=== PATIENT | female | born 1955 | race Caucasian/White ===

== ENCOUNTER → 2022-05-23 | Outpatient (CLI) | payer BC, MEDICARE ==
[~2022-05-23] VITALS: Ht 162.6 cm; Wt 59.9 kg
[~2022-05-23] MED LIST: ACETAMINOPHEN IV 100 ML IV ONE; ACETAMINOPHEN IV 1000 MG/100ML (10MG/ML) IV ONE; ALBU0.084 NEB; ALBUAER3 IN; APIX2.5T PO; BUPIVACAINE W/ EPINEPH 0.25% INJ 50ML MDV ONE; CELECOXIB 100 MG CAP PO ONE; FLUT1AER17 IN; GLYCOPYRROLATE 0.2 MG/ML 1ML VIAL ONE; HYDR-4902 PO; KETOROLAC TROMETH 30 MG/ML 1ML VIAL ONE; LIDOCAINE 2% (LOCAL ANESTH.) PF 5ml SDV ONE; MIDAZOLAM HCL 2MG/2ML 2ml VIAL (1mg/ml) ONE; MORPHINE SULF PF 5 MG/10 ML VIAL ONE; ONDANSETRON HCL 4 MG/2 ML VIAL ONE; PREGABALIN CAPSULE 75 MG CAP PO ONE; PROPOFOL 10 MG/ML 20 ML IV ONE; TRANEXAMIC ACID 20 ML ONE; VANCOMYCIN HCL 1000 MG VL ONE; ceFAZolin 1GM/50ML 100 ML IV ONE; ePHEDrine SULFATE 50 MG/ML AMP ONE; fentaNYL CITRATE 100 MCG/2 ML VL ONE
== END | disposition home or self-care (01) ==
LOC: LAB 08:00 → SUR 08:16 → EDSTATUS 07-18 10:30
PROVIDERS: ATTEND Orthopaedic Surgery Adult Reconstructive Orthopaedic Surgery
DX: Z01.812 Encounter for preprocedural laboratory examination (principal); Z20.822 Contact with and (suspected) exposure to COVID-19
CPT/HCPCS: 86850; 86900; 86901; J2270; U0003; J0131; J0690; J1885; J2001; J2250; J2405; J2704

== ENCOUNTER 2022-06-15 18:37 | Inpatient (IN) | payer MEDICARE, BC ==
[~2022-06-15] VITALS: Ht 165.1 cm; Wt 61.5 kg
[~2022-06-15 18:37] MED LIST changes: -ACETAMINOPHEN IV 100 ML IV ONE; -ACETAMINOPHEN IV 1000 MG/100ML (10MG/ML) IV ONE; -APIX2.5T PO; -BUPIVACAINE W/ EPINEPH 0.25% INJ 50ML MDV ONE; -CELECOXIB 100 MG CAP PO ONE; -GLYCOPYRROLATE 0.2 MG/ML 1ML VIAL ONE; -HYDR-4902 PO; -KETOROLAC TROMETH 30 MG/ML 1ML VIAL ONE; -LIDOCAINE 2% (LOCAL ANESTH.) PF 5ml SDV ONE; -MIDAZOLAM HCL 2MG/2ML 2ml VIAL (1mg/ml) ONE; -MORPHINE SULF PF 5 MG/10 ML VIAL ONE; -ONDANSETRON HCL 4 MG/2 ML VIAL ONE; -PREGABALIN CAPSULE 75 MG CAP PO ONE; -PROPOFOL 10 MG/ML 20 ML IV ONE; -TRANEXAMIC ACID 20 ML ONE; -VANCOMYCIN HCL 1000 MG VL ONE; -ceFAZolin 1GM/50ML 100 ML IV ONE; -ePHEDrine SULFATE 50 MG/ML AMP ONE; -fentaNYL CITRATE 100 MCG/2 ML VL ONE
[2022-06-16] VITALS (11 sets, daily range): BP systolic 94–128; BP diastolic 52–87
[2022-06-16] MEDS ORDERED: NITROGLYCERIN 0.4 MG SL TAB SL PRN (00:30)
[2022-06-16] MEDS ORDERED: MORPHINE SULFATE INJ 2 MG/ml SYRG IV PRN ×2 (00:30)
[2022-06-16] MEDS ORDERED: ONDANSETRON HCL 4 MG/2 ML VIAL IV PRN ×3 (00:30→15:45)
[2022-06-16] MEDS ORDERED: SODIUM CHLORIDE 0.9% 1,000 ML IV ONE (00:45)
[2022-06-16 01:14] LABS: Basophils # (auto) 0.2 10 ^3/uL (0-0.2); Basophils % (auto) 0.9 % (0.0-2.0); Eosinophils # (auto) 0 10 ^3/uL (0-0.8); Eosinophils % (auto) 0.1 % (0.0-7.0); Hematocrit 40.8 % (36.0-46.0); Hemoglobin 13.6 g/dL (12.2-16.2); Lymphocytes # (auto) 4.9 10 ^3/uL (0.4-5.4); Lymphocytes % (auto) 24.4 % (10.0-50.0); Mean Corpuscular Hemoglobin 30.5 pg (28.0-32.0); Mean Corpuscular Hgb Conc. 33.3 g/dL (32.0-36.0); Mean Corpuscular Volume 91.5 fL (80.0-100.0); Monocytes # (auto) 1.1 10 ^3/uL (0-1.3); Monocytes % (auto) 5.7 % (0.0-12.0); Neutrophils # (auto) 13.9 10 ^3/uL (1.6-8.6); Neutrophils % (auto) 68.9 % (37.0-80.0); Red Blood Cells 4.46 10^6/uL (4.0-5.20); Red Cell Distribution Width 13.4 % (11.8-14.3); White Blood Cell 20.1 10^3/uL (4.4-10.8)
[2022-06-16 01:36] LABS: Albumin 4.1 g/dL (3.4-5.0); BUN/Creatinine Ratio 23.3; Calcium 9.8 mg/dL (8.5-10.1); Potassium 4.7 mmol/L (3.5-5.1)
[2022-06-16 01:45] LABS: Bilirubin, Total 0.5 mg/dL (0.2-1.0)
[2022-06-16 02:03] LABS: INR 0.98 (0.9-1.15)
[2022-06-16 05:04] LABS: Basophils # (auto) 0 10 ^3/uL (0-0.2); Basophils % (auto) 0.2 % (0.0-2.0); Eosinophils # (auto) 0.1 10 ^3/uL (0-0.8); Eosinophils % (auto) 0.7 % (0.0-7.0); Hematocrit 38.7 % (36.0-46.0); Hemoglobin 12.7 g/dL (12.2-16.2); Lymphocytes # (auto) 5.5 10 ^3/uL (0.4-5.4); Lymphocytes % (auto) 27.4 % (10.0-50.0); Mean Corpuscular Hemoglobin 30.3 pg (28.0-32.0); Mean Corpuscular Hgb Conc. 32.9 g/dL (32.0-36.0); Mean Corpuscular Volume 92.1 fL (80.0-100.0); Monocytes # (auto) 1.9 10 ^3/uL (0-1.3); Monocytes % (auto) 9.3 % (0.0-12.0); Neutrophils # (auto) 12.5 10 ^3/uL (1.6-8.6); Neutrophils % (auto) 62.4 % (37.0-80.0); Red Cell Distribution Width 13.6 % (11.8-14.3)
[2022-06-16 05:30] LABS: Albumin 3.7 g/dL (3.4-5.0); Calcium 9.1 mg/dL (8.5-10.1); Potassium 4.2 mmol/L (3.5-5.1)
[2022-06-16 05:33] LABS: Bilirubin, Total 0.5 mg/dL (0.2-1.0); Total Protein 6.5 g/dL (6.4-8.2)
[2022-06-16] MEDS ORDERED: ALBUTEROL SULF 2.5 MG/0.5ML(0.5%) NEB SOLN NEB SCH (06:00)
[2022-06-16] MEDS ORDERED: IPRATROPIUM BROM 0.5 MG/2.5ML INH SOL NEB SCH (06:00)
[2022-06-16 07:26] LABS: Urine Bacteria FEW /hpf (None Seen); Urine Blood Negative /uL (Negative); Urine Mucus FEW (None Seen); Urine Specific Gravity 1.008 (1.001-1.035); Urine WBC 1 /hpf (0 - 5)
[2022-06-16] MEDS: NICOTINE 21MG/24 HR TOPICAL PATCH TD SCH (10:15)
[2022-06-16] MEDS: ALBUTEROL SULF 2.5 MG/0.5ML(0.5%) NEB SOLN NEB PRN ×5 (10:45→22:43)
[2022-06-16] MEDS: IPRATROPIUM BROM 0.5 MG/2.5ML INH SOL NEB SCH ×5 (10:45→22:43)
[2022-06-16] MEDS ORDERED: TRANEXAMIC ACID 20 ML ONE (12:39)
[2022-06-16] MEDS: BUPIVACAINE 0.25% INJ 50ML VIAL ONE ×2 (12:40→14:45)
[2022-06-16] MEDS ORDERED: ceFAZolin 1GM/50ML 100 ML IV ONE (12:40)
[2022-06-16] MEDS: KETOROLAC TROMETH 30 MG/ML 1ML VIAL ONE ×2 (12:41→14:45)
[2022-06-16] MEDS: VANCOMYCIN HCL 1000 MG VL ONE ×2 (12:41→14:40)
[2022-06-16] MEDS ORDERED: ePHEDrine SULFATE 50 MG/ML AMP ONE (12:48)
[2022-06-16] MEDS ORDERED: MIDAZOLAM HCL 2MG/2ML 2ml VIAL (1mg/ml) ONE (12:48)
[2022-06-16] MEDS ORDERED: ONDANSETRON HCL 4 MG/2 ML VIAL ONE (12:48)
[2022-06-16] MEDS ORDERED: fentaNYL CITRATE 100 MCG/2 ML VL ONE (12:48)
[2022-06-16] MEDS ORDERED: MORPHINE SULF PF 5 MG/10 ML VIAL ONE (12:48)
[2022-06-16] MEDS ORDERED: PROPOFOL 10 MG/ML 20 ML IV ONE (12:48)
[2022-06-16] MEDS ORDERED: BUPIVACAINE 0.5% P/F INJ 10 ML VIAL ONE (12:53)
[2022-06-16] MEDS ORDERED: ALBUTEROL SULF 2.5 MG/0.5ML(0.5%) NEB SOLN NEB ONE (15:00)
[2022-06-16] MEDS ORDERED: HYDROmorphone HCL 2 MG/ML VL/or syr IV PRN (15:15)
[2022-06-16] MEDS ORDERED: BISACODYL 5 MG EC TAB PO PRN (15:15)
[2022-06-16] MEDS: LACTATED RINGER'S 1,000 ML IV SCH (15:15)
[2022-06-16] MEDS ORDERED: ceFAZolin 1GM/50ML 50 ML IV SCH (15:15)
[2022-06-16] MEDS ORDERED: ACETAMINOPHEN 325 MG TAB PO PRN (15:15)
[2022-06-16] MEDS ORDERED: KETAMINE 50mg/ML 10ml Vial (500mg/10ml) IV ONE (15:18)
[2022-06-16] MEDS ORDERED: diphenhdrAMINE HCL 50 MG/1 ML VL IV PRN (15:45)
[2022-06-16] MEDS ORDERED: NALOXONE HCL 0.4 MG/ML VIAL IV PRN (15:45)
[2022-06-16] MEDS ORDERED: FAMOTIDINE (10MG/ML) 2ML VL IV PRN (15:45)
[2022-06-16] MEDS ORDERED: DexAMETHasone SOD PHOS 10MG/1ML VIAL INJ IV PRN (15:45)
[2022-06-16] MEDS: DOCUSATE SOD 100 MG CAP PO SCH (21:52)
[2022-06-16] MEDS: HYDROCORTISONE SOD SUCC 100 MG/2ML INJ VIAL IV SCH ×2 (21:52→22:00)
[2022-06-16] MEDS: ceFAZolin 1GM/50ML 50 ML IV SCH (21:53)
[2022-06-16] MEDS: SODIUM CHLOR 0.9% PF (SALINE LOCK) 10ML VIAL/SYR IV SCH (21:54)
[2022-06-17] VITALS (19 sets, daily range): BP systolic 94–124; BP diastolic 45–81
[2022-06-17] MEDS: LACTATED RINGER'S 1,000 ML IV SCH (01:15)
[2022-06-17] MEDS: IPRATROPIUM BROM 0.5 MG/2.5ML INH SOL NEB SCH ×6 (02:14→21:47)
[2022-06-17] MEDS: ALBUTEROL SULF 2.5 MG/0.5ML(0.5%) NEB SOLN NEB PRN ×6 (02:14→21:47)
[2022-06-17] MEDS: ceFAZolin 1GM/50ML 50 ML IV SCH ×2 (03:21→10:22)
[2022-06-17] MEDS: SODIUM CHLOR 0.9% PF (SALINE LOCK) 10ML VIAL/SYR IV SCH ×3 (06:00→22:26)
[2022-06-17] MEDS: HYDROCORTISONE SOD SUCC 100 MG/2ML INJ VIAL IV SCH (06:38)
[2022-06-17 08:00] LABS: Basophils # (auto) 0 10 ^3/uL (0-0.2); Basophils % (auto) 0.1 % (0.0-2.0); Eosinophils # (auto) 0 10 ^3/uL (0-0.8); Eosinophils % (auto) 0.1 % (0.0-7.0); Hematocrit 32.9 % (36.0-46.0); Hemoglobin 10.8 g/dL (12.2-16.2); Lymphocytes # (auto) 3.7 10 ^3/uL (0.4-5.4); Lymphocytes % (auto) 15.5 % (10.0-50.0); Mean Corpuscular Hemoglobin 30.4 pg (28.0-32.0); Mean Corpuscular Hgb Conc. 32.8 g/dL (32.0-36.0); Mean Corpuscular Volume 92.8 fL (80.0-100.0); Monocytes # (auto) 2.1 10 ^3/uL (0-1.3); Monocytes % (auto) 8.6 % (0.0-12.0); Neutrophils # (auto) 18.3 10 ^3/uL (1.6-8.6); Neutrophils % (auto) 75.7 % (37.0-80.0); Red Blood Cells 3.54 10^6/uL (4.0-5.20); White Blood Cell 24.1 10^3/uL (4.4-10.8)
[2022-06-17 08:15] LABS: Albumin 2.9 g/dL (3.4-5.0); BUN/Creatinine Ratio 18.4; Calcium 8.8 mg/dL (8.5-10.1); Potassium 4.4 mmol/L (3.5-5.1)
[2022-06-17 08:18] LABS: Bilirubin, Total 0.4 mg/dL (0.2-1.0); Total Protein 5.4 g/dL (6.4-8.2)
[2022-06-17] MEDS ORDERED: ENOXAPARIN SOD 40 MG/0.4 ML SYRINGE SC SCH (10:00)
[2022-06-17] MEDS: DOCUSATE SOD 100 MG CAP PO SCH ×2 (10:23→22:26)
[2022-06-17] MEDS: NICOTINE 21MG/24 HR TOPICAL PATCH TD SCH (10:23)
[2022-06-17] MEDS: HYDROcodone-ACET 5/325MG TAB PO PRN ×3 (10:25→22:30)
[2022-06-17] MEDS ORDERED: HYDROCORTISONE SOD SUCC 100 MG/2ML INJ VIAL IV SCH ×2 (14:00→22:00)
[2022-06-18] MEDS: IPRATROPIUM BROM 0.5 MG/2.5ML INH SOL NEB SCH ×2 (01:52→06:58)
[2022-06-18] MEDS: ALBUTEROL SULF 2.5 MG/0.5ML(0.5%) NEB SOLN NEB PRN ×2 (01:52→06:58)
[2022-06-18 05:00] VITALS: BP 125/66
[2022-06-18 05:28] LABS: Hemoglobin 11.3 g/dL (12.2-16.2)
[2022-06-18] MEDS: SODIUM CHLOR 0.9% PF (SALINE LOCK) 10ML VIAL/SYR IV SCH (05:39)
[2022-06-18] MEDS: HYDROcodone-ACET 5/325MG TAB PO PRN (05:52)
[2022-06-18 08:57] VITALS: BP 134/62
[2022-06-18] MEDS ORDERED: APIX2.5T PO ×2 (09:05→13:06)
[2022-06-18] MEDS ORDERED: HYDR-4902 PO ×3 (09:05→13:07)
== END 2022-06-18 10:00 | disposition home or self-care (01) | DRG 522 ==
LOC: ER 18:37 → OVERFLOW 06-16 00:23 → TELE-WESTW 06-16 12:36
PROVIDERS: ADMIT Internal Medicine; ATTEND Internal Medicine
PROC: 8E0YXBZ Computer Assisted Procedure of Lower Extremity (ICD-10-PCS; 2022-06-16)
PROC: 0SR90J9 Replacement of Right Hip Joint with Synthetic Substitute, Cemented, Open Approach (ICD-10-PCS; principal; 2022-06-16 13:00)
DX: S72.091A Other fracture of head and neck of right femur, initial encounter for closed fracture (principal); M87.851 Other osteonecrosis, right femur; J44.1 Chronic obstructive pulmonary disease with (acute) exacerbation; J96.10 Chronic respiratory failure, unspecified whether with hypoxia or hypercapnia; D72.829 Elevated white blood cell count, unspecified; Z20.822 Contact with and (suspected) exposure to COVID-19; T38.0X5A Adverse effect of glucocorticoids and synthetic analogues, initial encounter; W18.39XA Other fall on same level, initial encounter; M81.0 Age-related osteoporosis without current pathological fracture; Z90.710 Acquired absence of both cervix and uterus; Z99.81 Dependence on supplemental oxygen; Y92.89 Other specified places as the place of occurrence of the external cause; Y93.89 Activity, other specified; Y99.8 Other external cause status
CPT/HCPCS: 36415; 71045; 72170; 73501; 73502; 80053; 81001; 84484; 85014; 85018; 85025; 85610; 86850; 86900; 86901; 87426; 94640; 96360; G0378; J0690; J1885; J2250; J2405; J2704; J3490

== ENCOUNTER 2022-09-22 20:59 | Inpatient (IN) | payer BC, MEDICARE ==
[~2022-09-22] VITALS: Ht 165.1 cm; Wt 59.6 kg
[~2022-09-22 20:59] MED LIST changes: +APIX2.5T PO; +HYDR-4902 PO
[2022-09-22 22:16] LABS: Mean Corpuscular Hemoglobin 30.3 pg (28.0-32.0)
[2022-09-22 22:18] LABS: Hematocrit 43.2 % (36.0-46.0); Hemoglobin 14.3 g/dL (12.2-16.2); Mean Corpuscular Volume 91.8 fL (80.0-100.0); Red Blood Cells 4.71 10^6/uL (4.0-5.20); Red Cell Distribution Width 14.1 % (11.8-14.3)
[2022-09-22 22:24] LABS: White Blood Cell 34.7 10^3/uL (4.4-10.8)
[2022-09-22 22:26] LABS: Basophils % (manual) 0 (0.0-2.0); Blast Cells 0; Eosinophils % (manual) 0 (0-7); Metamyelocytes % 0; Myelocytes % 0; Promyelocytes % 0; Reactive Lymphocytes 0
[2022-09-22 22:35] LABS: INR 0.95 (0.9-1.15); Partial Thromboplastin Time 29.1 sec (24.6-33.4)
[2022-09-22 22:37] LABS: Calcium 9.5 mg/dL (8.5-10.1); Potassium 4.5 mmol/L (3.5-5.1)
[2022-09-22 22:40] LABS: Bilirubin, Total 0.4 mg/dL (0.2-1.0); Total Protein 7.2 g/dL (6.4-8.2)
[2022-09-22 23:04] LABS: Band Neutrophils % (manual) 5; Lymphocytes % (manual) 6 (10.0-50.0); Monocytes % (manual) 6 (0-12)
[2022-09-23] MEDS ORDERED: VANCOMYCIN 1GM/250ML 250 ML IV ONE (01:15)
[2022-09-23] MEDS ORDERED: NITROGLYCERIN 0.4 MG SL TAB SL PRN (01:15)
[2022-09-23] MEDS ORDERED: PIPERACILLIN-TAZOB 3.375GM 100 ML IV ONE (01:15)
[2022-09-23 01:16] VITALS: BP 147/65
[2022-09-23] MEDS ORDERED: SOD CHL 0.45% 1,000 ML IV ONE (01:45)
[2022-09-23] MEDS: ALBUTEROL SULF 2.5 MG/0.5ML(0.5%) NEB SOLN NEB SCH ×4 (05:47→23:53)
[2022-09-23] MEDS: methylPREDNISolone SOD SUCC 125 MG/2 ML VL IV SCH ×3 (06:36→21:18)
[2022-09-23] MEDS ORDERED: VANCOMYCIN PER PHARMACY 0 MG IV SCH ×2 (08:00→10:30)
[2022-09-23] MEDS ORDERED: PIPERACILLIN-TAZOB 3.375GM 100 ML IV SCH (08:00)
[2022-09-23] MEDS: IPRATROPIUM BROM 0.5 MG/2.5ML INH SOL NEB SCH ×3 (11:08→23:53)
[2022-09-23] MEDS: ACETYLCYSTEINE 20%(200MG/ML) SOL 4ML NEB SCH ×3 (11:09→23:53)
[2022-09-23] MEDS: VANCOMYCIN 1GM/250ML 250 ML IV SCH (16:08)
[2022-09-23] MEDS: PIPERACILLIN-TAZOB 3.375GM 100 ML IV SCH (18:14)
[2022-09-23] MEDS ORDERED: INFLUENZA QUAD 2022-2023 0.5 ML SYRG IM ONE (19:00)
[2022-09-23 19:02] VITALS: BP 135/73
[2022-09-23 21:42] LABS: Urine Bacteria FEW /hpf (None Seen); Urine Blood Negative /uL (Negative); Urine Specific Gravity 1.006 (1.001-1.035); Urine WBC <1 /hpf (0 - 5)
[2022-09-23 22:00] VITALS: BP 125/67
[2022-09-24] MEDS: PIPERACILLIN-TAZOB 3.375GM 100 ML IV SCH ×3 (02:03→20:14)
[2022-09-24 05:00] VITALS: BP 112/62
[2022-09-24 05:56] LABS: Basophils # (auto) 0 10 ^3/uL (0-0.2); Eosinophils # (auto) 0 10 ^3/uL (0-0.8); Hematocrit 35.6 % (36.0-46.0); Lymphocytes # (auto) 1.6 10 ^3/uL (0.4-5.4); Lymphocytes % (auto) 8.7 % (10.0-50.0); Mean Corpuscular Hemoglobin 30.6 pg (28.0-32.0); Mean Corpuscular Hgb Conc. 33.7 g/dL (32.0-36.0); Mean Corpuscular Volume 90.9 fL (80.0-100.0); Monocytes # (auto) 0.8 10 ^3/uL (0-1.3); Monocytes % (auto) 4.3 % (0.0-12.0); Neutrophils # (auto) 16.4 10 ^3/uL (1.6-8.6); Red Blood Cells 3.91 10^6/uL (4.0-5.20); Red Cell Distribution Width 13.9 % (11.8-14.3); White Blood Cell 18.9 10^3/uL (4.4-10.8)
[2022-09-24] MEDS: ACETYLCYSTEINE 20%(200MG/ML) SOL 4ML NEB SCH ×3 (06:00→19:34)
[2022-09-24] MEDS: IPRATROPIUM BROM 0.5 MG/2.5ML INH SOL NEB SCH ×3 (06:00→19:33)
[2022-09-24] MEDS: ALBUTEROL SULF 2.5 MG/0.5ML(0.5%) NEB SOLN NEB SCH ×3 (06:00→19:34)
[2022-09-24] MEDS: VANCOMYCIN 1GM/250ML 250 ML IV SCH ×2 (06:15→18:51)
[2022-09-24 06:17] LABS: Potassium 4.4 mmol/L (3.5-5.1)
[2022-09-24 06:34] LABS: Albumin 3.1 g/dL (3.4-5.0); BUN/Creatinine Ratio 21.4 (10.0-20.0); Calcium 9.4 mg/dL (8.5-10.1)
[2022-09-24 06:53] LABS: Bilirubin, Total 0.2 mg/dL (0.2-1.0); Total Protein 6.2 g/dL (6.4-8.2)
[2022-09-24 09:00] VITALS: BP 119/63
[2022-09-24] MEDS ORDERED: OXYCODONE W/ ACETAMINOPHEN 5/325MG TABLET PO PRN (09:00)
[2022-09-24] MEDS ORDERED: ACETAMINOPHEN 500 MG TAB PO PRN (12:00)
[2022-09-24 13:00] VITALS: BP 120/59
[2022-09-24 16:50] VITALS: BP 119/57
[2022-09-24 22:00] VITALS: BP 113/50
[2022-09-25] MEDS: ACETYLCYSTEINE 20%(200MG/ML) SOL 4ML NEB SCH ×3 (01:00→11:23)
[2022-09-25] MEDS: ALBUTEROL SULF 2.5 MG/0.5ML(0.5%) NEB SOLN NEB SCH ×3 (01:00→11:23)
[2022-09-25] MEDS: IPRATROPIUM BROM 0.5 MG/2.5ML INH SOL NEB SCH ×3 (01:00→11:23)
[2022-09-25] MEDS: PIPERACILLIN-TAZOB 3.375GM 100 ML IV SCH ×2 (01:23→10:12)
[2022-09-25 05:00] VITALS: BP 101/60
[2022-09-25] MEDS ORDERED: VANCOMYCIN 1GM/250ML 250 ML IV SCH (05:00)
[2022-09-25 05:26] LABS: Basophils # (auto) 0 10 ^3/uL (0-0.2); Basophils % (auto) 0.1 % (0.0-2.0); Eosinophils # (auto) 0.2 10 ^3/uL (0-0.8); Eosinophils % (auto) 0.9 % (0.0-7.0); Hematocrit 36.9 % (36.0-46.0); Hemoglobin 12.2 g/dL (12.2-16.2); Lymphocytes # (auto) 4.1 10 ^3/uL (0.4-5.4); Lymphocytes % (auto) 23.3 % (10.0-50.0); Mean Corpuscular Hemoglobin 30.3 pg (28.0-32.0); Mean Corpuscular Hgb Conc. 33.2 g/dL (32.0-36.0); Mean Corpuscular Volume 91.5 fL (80.0-100.0); Monocytes # (auto) 1.8 10 ^3/uL (0-1.3); Monocytes % (auto) 10.1 % (0.0-12.0); Neutrophils # (auto) 11.4 10 ^3/uL (1.6-8.6); Neutrophils % (auto) 65.6 % (37.0-80.0); Nucleated Red Blood Cells % 0.1 %; Red Blood Cells 4.04 10^6/uL (4.0-5.20); Red Cell Distribution Width 13.9 % (11.8-14.3); White Blood Cell 17.4 10^3/uL (4.4-10.8)
[2022-09-25 05:41] LABS: Potassium 3.8 mmol/L (3.5-5.1)
[2022-09-25 05:53] LABS: Albumin 2.9 g/dL (3.4-5.0); BUN/Creatinine Ratio 21.8 (10.0-20.0); Bilirubin, Total 0.4 mg/dL (0.2-1.0); Total Protein 5.8 g/dL (6.4-8.2)
[2022-09-25] MEDS ORDERED: FUROSEMIDE 20 MG/2 ML VIAL IV ONE ×2 (08:30→10:00)
[2022-09-25 09:00] VITALS: BP 136/65
[2022-09-25] MEDS ORDERED: LEVO750T8 PO (09:50)
[2022-09-25] MEDS ORDERED: PRED20TA2 PO (09:51)
[2022-09-25] MEDS ORDERED: DEXT1SUS PO (09:54)
[2022-09-25] MEDS ORDERED: NYS5LQ MT (12:34)
[2022-09-25 13:00] VITALS: BP 118/58
== END 2022-09-25 15:28 | disposition home or self-care (01) | DRG 871 ==
LOC: ER 20:59 → EDBD 20:59 → TELE 09-23 01:09 → TELE-CENTR 09-23 18:06
PROVIDERS: ADMIT Internal Medicine; ATTEND Internal Medicine
DX: A41.9 Sepsis, unspecified organism (principal); J15.6 Pneumonia due to other Gram-negative bacteria; J96.20 Acute and chronic respiratory failure, unspecified whether with hypoxia or hypercapnia; J44.0 Chronic obstructive pulmonary disease with (acute) lower respiratory infection; J44.1 Chronic obstructive pulmonary disease with (acute) exacerbation; Z20.822 Contact with and (suspected) exposure to COVID-19; G89.29 Other chronic pain; M54.9 Dorsalgia, unspecified; F17.200 Nicotine dependence, unspecified, uncomplicated; M19.90 Unspecified osteoarthritis, unspecified site; Z87.01 Personal history of pneumonia (recurrent); Z90.710 Acquired absence of both cervix and uterus; Z99.81 Dependence on supplemental oxygen
CPT/HCPCS: 36415; 36600; 71045; 80053; 80202; 81001; 82805; 83605; 83880; 84484; 85007; 85025; 85027; 85610; 85730; 87040; 87070; 87077; 87186; 87205; 87426; 93005; 93306; 94640; 94668; 96365; 96366; 96367; G0378; J2543

== ENCOUNTER 2023-09-16 18:07 | Observation (INO) | payer BC, MEDICARE ==
[~2023-09-16] VITALS: Ht 162.6 cm; Wt 61.3 kg
[~2023-09-16 18:07] MED LIST changes: -APIX2.5T PO; +DEXT1SUS PO; -HYDR-4902 PO; +LEVO750T8 PO; +NYS5LQ MT; +PRED20TA2 PO
[2023-09-16] MEDS: cefTRIAXone 1GM/50ML D5W 50 ML IV ONE (18:40)
[2023-09-16] MEDS: methylPREDNISolone SOD SUCC 125 MG/2 ML VL IV ONE (18:40)
[2023-09-16] MEDS: IPRATROPIUM BROM 0.5 MG/2.5ML INH SOL NEB ONE ×2 (18:47→20:46)
[2023-09-16 18:48] VITALS: PULSE 119; RESP 28; O2SAT 95
[2023-09-16] MEDS: ALBUTEROL SULF 2.5 MG/0.5ML(0.5%) NEB SOLN NEB ONE ×2 (18:48→20:46)
[2023-09-16 19:23] VITALS: PULSE 119; RESP 26; O2SAT 96
[2023-09-16] MEDS: AZITHROMYCIN 500MG/ 250ML 250 ML IV ONE (19:38)
[2023-09-16 20:20] LABS: Basophils # (auto) 0.1 10 ^3/uL (0-0.2); Basophils % (auto) 0.2 % (0.0-2.0); Eosinophils # (auto) 0 10 ^3/uL (0-0.8); Hematocrit 44.4 % (36.0-46.0); Lymphocytes # (auto) 5.2 10 ^3/uL (0.4-5.4); Lymphocytes % (auto) 18.3 % (10.0-50.0); Mean Corpuscular Hemoglobin 31.4 pg (28.0-32.0); Mean Corpuscular Hgb Conc. 33.8 g/dL (32.0-36.0); Monocytes # (auto) 1.6 10 ^3/uL (0-1.3); Monocytes % (auto) 5.7 % (0.0-12.0); Neutrophils # (auto) 21.4 10 ^3/uL (1.6-8.6); Neutrophils % (auto) 75.8 % (37.0-80.0); Nucleated Red Blood Cells % 0.1 %; Red Blood Cells 4.77 10^6/uL (4.0-5.20); Red Cell Distribution Width 14.1 % (11.8-14.3); White Blood Cell 28.2 10^3/uL (4.4-10.8)
[2023-09-16 20:33] LABS: INR 0.97 (0.9-1.15); Partial Thromboplastin Time 25.6 SEC (24.5-34.5); Prothrombin Time 10.2 sec (9.3-11.8)
[2023-09-16] MEDS: SODIUM CHLORIDE 0.9% 1,000 ML IV ONE ×2 (20:38→22:28)
[2023-09-16 20:39] LABS: Alanine Aminotransferase 13 U/L (7-40); Alkaline Phosphatase 51 U/L (46-116); Anion Gap 11 (5-15); Aspartate Aminotransferase 12 U/L (13-40); BUN/Creatinine Ratio 12.8 (10.0-20.0); Blood Urea Nitrogen 14 mg/dL (9-23); Calcium 9.7 mg/dL (8.7-10.4); Carbon Dioxide 27 mmol/L (20-30); Chloride 101 mmol/L (98-107); Glucose 174 mg/dL (74-106); Potassium 4.3 mmol/L (3.5-5.1); Sodium 139 mmol/L (136-145)
[2023-09-16 20:40] LABS: Albumin 4.5 g/dL (3.2-4.8); Bilirubin, Total 0.3 mg/dL (0.2-1.0); Total Protein 7.2 g/dL (5.7-8.2)
[2023-09-16 21:00] LABS: Lactic Acid w/Reflex 5.3 mmol/L (0.4-2.0)
[2023-09-16] MEDS: LORazepam 2MG/ML-1ML VIAL IV ONE (21:26)
[2023-09-16] MEDS: NITROGLYCERIN 2% OINT 1GM PKG TD ONE (22:28)
[2023-09-16] MEDS: ASPirin 325 MG TAB PO ONE (22:28)
[2023-09-16] MEDS ORDERED: DEXTROSE (50%) 50ML SYRG IV PRN (23:15)
[2023-09-16] MEDS ORDERED: ONDANSETRON HCL 4 MG/2 ML VIAL IV PRN (23:15)
[2023-09-16 23:18] VITALS: BP 132/82; PULSE 134; RESP 28; TEMP 97.7; O2SAT 92
[2023-09-16] MEDS: SODIUM CHLORIDE 0.9% 1,000 ML IV SCH (23:49)
[2023-09-17] VITALS (13 sets, daily range): BP systolic 115; BP diastolic 67; PULSE 101–123; RESP 18–28; TEMP 98.2; O2SAT 95–99
[2023-09-17] MEDS ORDERED: MORPHINE SULFATE INJ 2 MG/ml SYRG IV PRN (01:45)
[2023-09-17] MEDS ORDERED: NITROGLYCERIN 0.4 MG SL TAB SL PRN (01:45)
[2023-09-17] MEDS: IPRATROPIUM BROM 0.5 MG/2.5ML INH SOL NEB SCH (02:15)
[2023-09-17] MEDS: ALBUTEROL SULF 2.5 MG/0.5ML(0.5%) NEB SOLN NEB SCH (02:15)
[2023-09-17 05:18] LABS: Basophils # (auto) 0 10 ^3/uL (0-0.2); Basophils % (auto) 0.1 % (0.0-2.0); Eosinophils # (auto) 0 10 ^3/uL (0-0.8); Hematocrit 38.9 % (36.0-46.0); Hemoglobin 12.7 g/dL (12.2-16.2); Lymphocytes # (auto) 1.5 10 ^3/uL (0.4-5.4); Lymphocytes % (auto) 6.5 % (10.0-50.0); Mean Corpuscular Hemoglobin 30.4 pg (28.0-32.0); Mean Corpuscular Hgb Conc. 32.6 g/dL (32.0-36.0); Mean Corpuscular Volume 93.2 fL (80.0-100.0); Monocytes # (auto) 1.3 10 ^3/uL (0-1.3); Monocytes % (auto) 5.6 % (0.0-12.0); Neutrophils # (auto) 20.5 10 ^3/uL (1.6-8.6); Neutrophils % (auto) 87.8 % (37.0-80.0); Red Blood Cells 4.17 10^6/uL (4.0-5.20); Red Cell Distribution Width 13.9 % (11.8-14.3); White Blood Cell 23.3 10^3/uL (4.4-10.8)
[2023-09-17 05:32] LABS: Anion Gap 8 (5-15); Carbon Dioxide 26 mmol/L (20-30); Chloride 106 mmol/L (98-107); Potassium 4.6 mmol/L (3.5-5.1); Sodium 140 mmol/L (136-145)
[2023-09-17 05:33] LABS: Calcium 8.7 mg/dL (8.7-10.4)
[2023-09-17 05:38] LABS: BUN/Creatinine Ratio 19.2 (10.0-20.0); Blood Urea Nitrogen 14 mg/dL (9-23); Glucose 174 mg/dL (74-106)
[2023-09-17 05:56] LABS: Lactic Acid w/Reflex 3.1 mmol/L (0.4-2.0)
[2023-09-17] MEDS: ENOXAPARIN SOD 40 MG/0.4 ML SYRINGE SC SCH (06:26)
[2023-09-17] MEDS ORDERED: ENOXAPARIN SOD 100 MG/1 ML SYRINGE SC SCH (06:30)
[2023-09-17] MEDS: methylPREDNISolone SOD SUCC 40 MG/ML VL IV SCH ×2 (06:40→10:49)
[2023-09-17] MEDS: ENOXAPARIN SOD 100 MG/1 ML SYRINGE SC SCH (06:51)
[2023-09-17] MEDS: PROMETHAZINE W/CODEINE 5 ML ORAL SYRUP PO PRN (07:02)
[2023-09-17] MEDS: ACCU-CHEK COMFORT CURVE STRIP VI SCH (07:03)
[2023-09-17] MEDS: InsuLIN REG 1unit/0.01ml Soln (100units/ml) SC SCH (07:11)
[2023-09-17 08:38] LABS: Triglycerides 87 mg/dL (< 150)
[2023-09-17 08:39] LABS: LDL Cholesterol 68 mg/dL (< 100)
[2023-09-17 08:40] LABS: Cholesterol 167 mg/dL (< 200); HDL Cholesterol 81 mg/dL (40-59)
[2023-09-17] MEDS ORDERED: hydrALAZINE HCL 20 MG/ML VL IV PRN (09:00)
[2023-09-17 09:09] LABS: COVID19 ANTIGEN SOFIA FIA NEGATIVE (NEGATIVE)
[2023-09-17 09:10] LABS: Rapid Influenza A Negative (Negative); Rapid Influenza B Negative (Negative)
[2023-09-17] MEDS: ASPirin-EC 81 mg tab PO SCH (10:49)
[2023-09-17] MEDS: SODIUM CHLORIDE 0.9% 1,000 ML IV SCH (10:49)
[2023-09-17 14:43] LABS: Amphetamine Screen, Urine Neg (NEGATIVE); Barbiturate Scree,Urine Neg (NEGATIVE); Benzodiazephine Screen, Urine Neg (NEGATIVE); Cocaine Screen, Urine Neg (NEGATIVE); Urine Bacteria NONE SEEN /hpf (None Seen); Urine Blood Negative /uL (Negative); Urine Clarity Clear (Clear); Urine Color Colorless (Yellow); Urine Protein, UAD Negative (Negative); Urine Specific Gravity 1.008 (1.001-1.035); Urine Urobilinogen Normal (Negative); Urine WBC <1 /hpf (0 - 5); Urine pH 6.5 (5.0-8.0)
[2023-09-17 14:44] LABS: Cannabinoid Screen, Urine Neg (NEGATIVE); Opiate Scree,Urine Pos (NEGATIVE); Phencyclidine Screen, Urine Neg (NEGATIVE)
[2023-09-17] MEDS: IOHEXOL 350 MG/ML 100ML IJ ONE (14:58)
[2023-09-17] MEDS ORDERED: PRED20TA2 PO (17:56)
[2023-09-17] MEDS ORDERED: AUG875T PO (17:56)
[2023-09-17] MEDS: cefTRIAXone 1GM/50ML D5W 50 ML IV SCH (18:27)
[2023-09-17] MEDS ORDERED: AZITHROMYCIN 500MG/ 250ML 250 ML IV SCH (20:00)
[2023-09-17] MEDS ORDERED: ATORVASTATIN 20 MG TAB PO SCH (22:00)
[2023-09-18] MEDS ORDERED: NICOTINE 7MG/24HR TOPICAL PATCH TD SCH (10:00)
== END 2023-09-17 18:58 | disposition home or self-care (01) ==
LOC: ER 18:07 → EDBD 18:07 → TELE 09-17 01:47
PROVIDERS: ADMIT Hospitalist; ATTEND Hospitalist
DX: J44.1 Chronic obstructive pulmonary disease with (acute) exacerbation (principal); Z20.822 Contact with and (suspected) exposure to COVID-19; J96.21 Acute and chronic respiratory failure with hypoxia; J18.9 Pneumonia, unspecified organism; J44.0 Chronic obstructive pulmonary disease with (acute) lower respiratory infection; M81.0 Age-related osteoporosis without current pathological fracture; I21.A1 Myocardial infarction type 2; D84.9 Immunodeficiency, unspecified; E11.9 Type 2 diabetes mellitus without complications; F17.210 Nicotine dependence, cigarettes, uncomplicated; Z79.52 Long term (current) use of systemic steroids; Z90.710 Acquired absence of both cervix and uterus; Z96.641 Presence of right artificial hip joint; Z99.81 Dependence on supplemental oxygen; Z79.899 Other long term (current) drug therapy
CPT/HCPCS: 36415; 36600; 71045; 71275; 80048; 80053; 80061; 80307; 81001; 82805; 82962; 83036; 83605; 83735; 83880; 84436; 84443; 84481; 84484; 85025; 85379; 85610; 85730; 87040; 87426; 87804; 93005; 93306; 94640; 94660; 96361; 96365; 96366; 96367; 96372; 96375; 96376; 99291; G0378; J0456; J0696; J1650; J1815; J2060; J2920; J2930; J7644; Q9967

== ENCOUNTER 2023-09-21 12:18 | Inpatient (IN) | payer BC, MEDICARE ==
[~2023-09-21] VITALS: Ht 162.6 cm; Wt 60.2 kg
[2023-09-21] VITALS (12 sets, daily range): BP systolic 89–113; BP diastolic 54–69; PULSE 106–144; RESP 19–43; TEMP 97.7; O2SAT 95–100
[~2023-09-21 12:18] MED LIST changes: +AUG875T PO
[2023-09-21] MEDS: DexAMETHasone SOD PHOS 10MG/1ML VIAL INJ IV ONE (12:30)
[2023-09-21] MEDS: IPRATROPIUM BROM 0.5 MG/2.5ML INH SOL ONE ×2 (12:45→17:31)
[2023-09-21] MEDS: ALBUTEROL SULF 2.5 MG/0.5ML(0.5%) NEB SOLN ONE (12:45)
[2023-09-21] MEDS: IPRATROPIUM BROM 0.5 MG/2.5ML INH SOL NEB ONE (12:57)
[2023-09-21] MEDS: ALBUTEROL SULF 2.5 MG/0.5ML(0.5%) NEB SOLN NEB ONE (12:57)
[2023-09-21 13:05] LABS: Hematocrit 50.9 % (36.0-46.0); Hemoglobin 16.7 g/dL (12.2-16.2); Mean Corpuscular Hemoglobin 30.6 pg (28.0-32.0); Mean Corpuscular Hgb Conc. 32.9 g/dL (32.0-36.0); Mean Corpuscular Volume 92.9 fL (80.0-100.0); Red Blood Cells 5.48 10^6/uL (4.0-5.20)
[2023-09-21 13:16] LABS: INR 1.03 (0.9-1.15); Prothrombin Time 10.8 sec (9.3-11.8)
[2023-09-21 13:19] LABS: Alanine Aminotransferase 54 U/L (7-40); Alkaline Phosphatase 70 U/L (46-116); Anion Gap 8 (5-15); Aspartate Aminotransferase 16 U/L (13-40); BUN/Creatinine Ratio 24.4 (10.0-20.0); Blood Urea Nitrogen 22 mg/dL (9-23); Calcium 10.3 mg/dL (8.5-10.1); Carbon Dioxide 32 mmol/L (20-30); Glucose 254 mg/dL (74-106); Potassium 4.4 mmol/L (3.5-5.1); Sodium 136 mmol/L (136-145)
[2023-09-21 13:20] LABS: Bilirubin, Total 0.5 mg/dL (0.2-1.0); Total Protein 7.4 g/dL (5.7-8.2); White Blood Cell 33.1 10^3/uL (4.4-10.8)
[2023-09-21 13:21] LABS: Basophils % (manual) 0 (0.0-2.0); Blast Cells 0; Eosinophils % (manual) 0 (0-7); Promyelocytes % 0; Reactive Lymphocytes 0
[2023-09-21 13:22] LABS: Chloride 96 mmol/L (98-107)
[2023-09-21] MEDS: LEVALBUTEROL HCL 1.25 MG/3 ML NEB NEB ONE (13:45)
[2023-09-21] MEDS ORDERED: PIPERACILLIN-TAZO 4.5GM 100 ML IV ONE (13:45)
[2023-09-21 13:50] LABS: Band Neutrophils % (manual) 4; Lymphocytes % (manual) 5 (10.0-50.0); Metamyelocytes % 1; Monocytes % (manual) 5 (0-12); Myelocytes % 9; Platelet Estimate Adequate
[2023-09-21 13:56] LABS: Lactic Acid w/Reflex 3.3 mmol/L (0.4-2.0)
[2023-09-21] MEDS: VANCOMYCIN 1GM/200ML 200 ML IV ONE ×2 (14:00→14:51)
[2023-09-21] MEDS: SODIUM CHLORIDE 0.9% 500 ML IV ONE (14:00)
[2023-09-21] MEDS: FUROSEMIDE 40 MG/4 ML VIAL IV ONE (14:45)
[2023-09-21 15:13] LABS: Base Excess 0.2 mmol/L (-2.0-2.0)
[2023-09-21 15:17] LABS: Amphetamine Screen, Urine Neg (NEGATIVE); Barbiturate Scree,Urine Neg (NEGATIVE); Benzodiazephine Screen, Urine Neg (NEGATIVE); Cocaine Screen, Urine Neg (NEGATIVE); Opiate Scree,Urine Neg (NEGATIVE)
[2023-09-21 15:18] LABS: Cannabinoid Screen, Urine Neg (NEGATIVE); Phencyclidine Screen, Urine Neg (NEGATIVE)
[2023-09-21] MEDS: SODIUM CHLORIDE 0.9% 1,000 ML IV ONE (15:41)
[2023-09-21] MEDS ORDERED: MORPHINE SULFATE INJ 2 MG/ml SYRG IV PRN ×2 (15:45)
[2023-09-21] MEDS ORDERED: HYDROcodone-ACET 5/325MG TAB PO PRN (15:45)
[2023-09-21] MEDS ORDERED: NITROGLYCERIN 0.4 MG SL TAB SL PRN (15:45)
[2023-09-21] MEDS ORDERED: ONDANSETRON HCL 4 MG/2 ML VIAL IV PRN (15:45)
[2023-09-21] MEDS ORDERED: TEMAZEPAM 15 MG CAP PO PRN (15:45)
[2023-09-21] MEDS: AZITHROMYCIN 500MG/ 250ML 250 ML IV SCH (15:58)
[2023-09-21] MEDS: LEVALBUTEROL HCL 1.25 MG/3 ML NEB ONE ×2 (16:00→17:31)
[2023-09-21] MEDS: ACETAMINOPHEN 325 MG TAB PO ONE (16:25)
[2023-09-21] MEDS: LORazepam 2MG/ML-1ML VIAL IV ONE (17:57)
[2023-09-21] MEDS: LEVALBUTEROL HCL 1.25 MG/3 ML NEB NEB SCH (18:27)
[2023-09-21] MEDS: IPRATROPIUM BROM 0.5 MG/2.5ML INH SOL NEB PRN (18:27)
[2023-09-21] MEDS: LORazepam 2MG/ML-1ML VIAL ONE (21:12)
[2023-09-21] MEDS: LORazepam 2MG/ML-1ML VIAL IV PRN (21:13)
[2023-09-21] MEDS: FUROSEMIDE 40 MG/4 ML VIAL IV SCH (22:00)
[2023-09-21] MEDS: SODIUM CHLOR 0.9% PF (SALINE LOCK) 10ML VIAL/SYR IV SCH (22:10)
[2023-09-21] MEDS: SOD CHL 0.45% 1,000 ML IV SCH (22:10)
[2023-09-21] MEDS: PIPERACILLIN-TAZOB 3.375GM 100 ML IV SCH (22:10)
[2023-09-21] MEDS: PIPERACILLIN-TAZOB 3.375GM 100 ML IV ONE (22:33)
[2023-09-21] MEDS: METOPROLOL TARTRATE 1MG/1ML-5ML VIAL IV SCH (23:51)
[2023-09-22] VITALS (72 sets, daily range): BP systolic 86–127; BP diastolic 50–80; PULSE 95–140; RESP 14–57; TEMP 97.6–98.3; O2SAT 85–100
[2023-09-22] MEDS ORDERED: PIPERACILLIN-TAZO 4.5GM 100 ML IV SCH
[2023-09-22] MEDS: PROMETHAZINE HCL 6.25 MG/5 ML ORAL SYRUP PO ONE (02:10)
[2023-09-22] MEDS: LEVALBUTEROL HCL 1.25 MG/3 ML NEB NEB PRN (03:15)
[2023-09-22] MEDS: IPRATROPIUM BROM 0.5 MG/2.5ML INH SOL NEB PRN (03:15)
[2023-09-22 04:22] LABS: Basophils # (auto) 0 10 ^3/uL (0-0.2); Basophils % (auto) 0.2 % (0.0-2.0); Eosinophils # (auto) 0 10 ^3/uL (0-0.8); Hematocrit 47.8 % (36.0-46.0); Hemoglobin 15.8 g/dL (12.2-16.2); Lymphocytes # (auto) 2.5 10 ^3/uL (0.4-5.4); Lymphocytes % (auto) 10.1 % (10.0-50.0); Mean Corpuscular Hemoglobin 30.4 pg (28.0-32.0); Mean Corpuscular Hgb Conc. 33.1 g/dL (32.0-36.0); Mean Corpuscular Volume 91.9 fL (80.0-100.0); Monocytes # (auto) 1.3 10 ^3/uL (0-1.3); Monocytes % (auto) 5.2 % (0.0-12.0); Neutrophils # (auto) 20.7 10 ^3/uL (1.6-8.6); Neutrophils % (auto) 84.5 % (37.0-80.0); Nucleated Red Blood Cells % 0.1 %; Red Blood Cells 5.21 10^6/uL (4.0-5.20); Red Cell Distribution Width 13.8 % (11.8-14.3); White Blood Cell 24.4 10^3/uL (4.4-10.8)
[2023-09-22 04:40] LABS: Alanine Aminotransferase 45 U/L (7-40); Alkaline Phosphatase 48 U/L (46-116); Anion Gap 7 (5-15); Blood Urea Nitrogen 14 mg/dL (9-23); Calcium 9.1 mg/dL (8.7-10.4); Carbon Dioxide 33 mmol/L (20-30); Chloride 97 mmol/L (98-107); Glucose 189 mg/dL (74-106); Potassium 3.9 mmol/L (3.5-5.1); Sodium 137 mmol/L (136-145)
[2023-09-22 04:41] LABS: Albumin 4.5 g/dL (3.2-4.8); Aspartate Aminotransferase 21 U/L (13-40)
[2023-09-22 04:42] LABS: Bilirubin, Total 0.7 mg/dL (0.2-1.0); Total Protein 6.8 g/dL (5.7-8.2)
[2023-09-22 04:58] LABS: Lactic Acid w/Reflex 2.3 mmol/L (0.4-2.0)
[2023-09-22] MEDS: PROMETHAZINE HCL 6.25 MG/5 ML ORAL SYRUP PO PRN (06:23)
[2023-09-22] MEDS: IPRATROPIUM BROM 0.5 MG/2.5ML INH SOL NEB SCH (06:45)
[2023-09-22] MEDS: LEVALBUTEROL HCL 1.25 MG/3 ML NEB NEB SCH ×2 (06:45)
[2023-09-22 07:34] LABS: Base Excess 7.4 mmol/L (-2.0-2.0)
[2023-09-22] MEDS: methylPREDNISolone SOD SUCC 125 MG/2 ML VL IV SCH ×2 (09:40→16:48)
[2023-09-22] MEDS: NICOTINE 14 MG/24HR TOPICAL PATCH TD SCH (09:43)
[2023-09-22] MEDS: SODIUM CHLORIDE 0.9% 1,000 ML IV SCH (09:54)
[2023-09-22] MEDS: ENOXAPARIN SOD 40 MG/0.4 ML SYRINGE SC SCH (10:00)
[2023-09-22] MEDS: FUROSEMIDE 40 MG/4 ML VIAL IV SCH (10:00)
[2023-09-22] MEDS ORDERED: VANCOMYCIN PER PHARMACY 0 MG IV SCH (11:30)
[2023-09-22] MEDS: Ensure HIGH Protein Vanilla 8oz Bottle PO SCH (12:00)
[2023-09-22] MEDS: VANCOMYCIN 750mg/150ml 150 ML IV SCH (17:53)
[2023-09-22] MEDS: PROMETHAZINE W/CODEINE 5 ML ORAL SYRUP PO PRN (21:58)
[2023-09-22] MEDS ORDERED: methylPREDNISolone SOD SUCC 125 MG/2 ML VL IV SCH (22:00)
[2023-09-23] VITALS (43 sets, daily range): BP systolic 100–132; BP diastolic 55–96; PULSE 74–105; RESP 15–41; TEMP 96.7–98.2; O2SAT 88–99
[2023-09-23 04:24] LABS: Basophils # (auto) 0 10 ^3/uL (0-0.2); Basophils % (auto) 0.1 % (0.0-2.0); Eosinophils # (auto) 0 10 ^3/uL (0-0.8); Hematocrit 45.1 % (36.0-46.0); Hemoglobin 14.8 g/dL (12.2-16.2); Lymphocytes # (auto) 1.5 10 ^3/uL (0.4-5.4); Lymphocytes % (auto) 7.1 % (10.0-50.0); Mean Corpuscular Hemoglobin 30.3 pg (28.0-32.0); Mean Corpuscular Hgb Conc. 32.8 g/dL (32.0-36.0); Mean Corpuscular Volume 92.3 fL (80.0-100.0); Monocytes # (auto) 0.8 10 ^3/uL (0-1.3); Monocytes % (auto) 3.9 % (0.0-12.0); Neutrophils # (auto) 18.6 10 ^3/uL (1.6-8.6); Neutrophils % (auto) 88.9 % (37.0-80.0); Nucleated Red Blood Cells % 0.1 %; Red Blood Cells 4.89 10^6/uL (4.0-5.20); Red Cell Distribution Width 13.8 % (11.8-14.3); White Blood Cell 20.9 10^3/uL (4.4-10.8)
[2023-09-23 04:35] LABS: Chloride 97 mmol/L (98-107); Potassium 3.8 mmol/L (3.5-5.1); Sodium 137 mmol/L (136-145)
[2023-09-23 04:36] LABS: Anion Gap 3 (5-15); Carbon Dioxide 37 mmol/L (20-30)
[2023-09-23 04:37] LABS: Calcium 8.9 mg/dL (8.7-10.4)
[2023-09-23 04:41] LABS: Glucose 216 mg/dL (74-106)
[2023-09-23 04:42] LABS: BUN/Creatinine Ratio 20.3 (10.0-20.0); Blood Urea Nitrogen 15 mg/dL (9-23)
[2023-09-23] MEDS: ACETAMINOPHEN 325 MG TAB PO PRN (06:18)
[2023-09-23 08:48] LABS: Base Excess 6.9 mmol/L (-2.0-2.0)
[2023-09-23] MEDS: InsuLIN REG 1unit/0.01ml Soln (100units/ml) SC SCH (12:00)
[2023-09-23] MEDS: ACCU-CHEK COMFORT CURVE STRIP VI SCH (12:00)
[2023-09-23] MEDS ORDERED: DEXTROSE (50%) 50ML SYRG IV PRN (12:00)
[2023-09-23] MEDS: METOPROLOL SUCCINATE XL 50 MG TAB PO ONE (16:32)
[2023-09-23] MEDS ORDERED: LORazepam 0.5 MG TAB PO PRN (18:30)
[2023-09-24] VITALS (35 sets, daily range): BP systolic 109–138; BP diastolic 50–78; PULSE 79–96; RESP 14–86; TEMP 96.9–98.2; O2SAT 90–97
[2023-09-24 03:53] LABS: Basophils # (auto) 0 10 ^3/uL (0-0.2); Basophils % (auto) 0.1 % (0.0-2.0); Eosinophils # (auto) 0 10 ^3/uL (0-0.8); Hematocrit 43.3 % (36.0-46.0); Hemoglobin 14.5 g/dL (12.2-16.2); Lymphocytes # (auto) 1.4 10 ^3/uL (0.4-5.4); Lymphocytes % (auto) 5.6 % (10.0-50.0); Mean Corpuscular Hemoglobin 30.9 pg (28.0-32.0); Mean Corpuscular Hgb Conc. 33.4 g/dL (32.0-36.0); Mean Corpuscular Volume 92.4 fL (80.0-100.0); Monocytes # (auto) 1.4 10 ^3/uL (0-1.3); Monocytes % (auto) 5.4 % (0.0-12.0); Neutrophils # (auto) 22.8 10 ^3/uL (1.6-8.6); Neutrophils % (auto) 88.9 % (37.0-80.0); Nucleated Red Blood Cells % 0.1 %; Red Blood Cells 4.69 10^6/uL (4.0-5.20); Red Cell Distribution Width 13.6 % (11.8-14.3); White Blood Cell 25.7 10^3/uL (4.4-10.8)
[2023-09-24 04:01] LABS: Chloride 99 mmol/L (98-107); Potassium 3.7 mmol/L (3.5-5.1); Sodium 137 mmol/L (136-145)
[2023-09-24 04:02] LABS: Anion Gap 3 (5-15); Calcium 9.1 mg/dL (8.7-10.4); Carbon Dioxide 35 mmol/L (20-30)
[2023-09-24 04:07] LABS: BUN/Creatinine Ratio 21.7 (10.0-20.0); Blood Urea Nitrogen 15 mg/dL (9-23); Glucose 173 mg/dL (74-106)
[2023-09-24] MEDS: Glucerna Carbsteady SHAKE Vanilla 8oz PO SCH (08:26)
[2023-09-24] MEDS: METOPROLOL SUCCINATE XL 50 MG TAB PO SCH (08:28)
[2023-09-24] MEDS: VANCOMYCIN 1GM/200ML 200 ML IV SCH (23:52)
[2023-09-25] VITALS (38 sets, daily range): BP systolic 101–156; BP diastolic 49–78; PULSE 75–98; RESP 15–25; TEMP 97–98.1; O2SAT 82–100
[2023-09-25 04:53] LABS: Hematocrit 42.9 % (36.0-46.0); Hemoglobin 14.6 g/dL (12.2-16.2); Mean Corpuscular Hemoglobin 31.6 pg (28.0-32.0); Red Blood Cells 4.61 10^6/uL (4.0-5.20); Red Cell Distribution Width 13.3 % (11.8-14.3); White Blood Cell 26.1 10^3/uL (4.4-10.8)
[2023-09-25 04:54] LABS: Basophils % (manual) 0 (0.0-2.0); Blast Cells 0; Eosinophils % (manual) 0 (0-7); Metamyelocytes % 0; Myelocytes % 0; Promyelocytes % 0; Reactive Lymphocytes 0
[2023-09-25 05:04] LABS: Anion Gap 2 (5-15); Carbon Dioxide 37 mmol/L (20-30); Chloride 99 mmol/L (98-107); Sodium 138 mmol/L (136-145)
[2023-09-25 05:05] LABS: Calcium 8.8 mg/dL (8.7-10.4)
[2023-09-25 05:10] LABS: BUN/Creatinine Ratio 26.8 (10.0-20.0); Blood Urea Nitrogen 22 mg/dL (9-23); Glucose 232 mg/dL (74-106)
[2023-09-25 08:14] LABS: Band Neutrophils % (manual) 1; Lymphocytes % (manual) 6 (10.0-50.0); Monocytes % (manual) 7 (0-12); RBC Morphology Normal
[2023-09-25 08:15] LABS: Platelet Estimate Adequate
[2023-09-25] MEDS ORDERED: METF-370 PO (10:16)
[2023-09-25] MEDS ORDERED: BUPR150T18 PO (10:16)
[2023-09-25] MEDS ORDERED: ATOR10TA PO (10:16)
[2023-09-25] MEDS: FUROSEMIDE 20 MG/2 ML VIAL IV SCH (10:23)
[2023-09-25] MEDS: DOCUSATE SOD 100 MG CAP PO PRN (13:01)
[2023-09-25] MEDS: AMPICILLIN & SULBACTAM SODIUM 3 GM in SODIUM CHL 0.9% 100 ML IV SCH (17:57)
[2023-09-25] MEDS: SENNA 8.6 MG TAB PO PRN (21:40)
[2023-09-26] VITALS (28 sets, daily range): BP systolic 115–166; BP diastolic 63–82; PULSE 70–100; RESP 12–25; TEMP 97–97.8; O2SAT 87–100
[2023-09-26 05:58] LABS: Calcium 8.8 mg/dL (8.7-10.4); Chloride 100 mmol/L (98-107); Potassium 3.4 mmol/L (3.5-5.1); Sodium 139 mmol/L (136-145)
[2023-09-26 05:59] LABS: Anion Gap 1 (5-15); Carbon Dioxide 38 mmol/L (20-30)
[2023-09-26 06:04] LABS: BUN/Creatinine Ratio 37.7 (10.0-20.0); Blood Urea Nitrogen 20 mg/dL (9-23); Glucose 169 mg/dL (74-106)
[2023-09-26 06:11] LABS: Basophils # (auto) 0 10 ^3/uL (0-0.2); Eosinophils # (auto) 0 10 ^3/uL (0-0.8); Hematocrit 41.2 % (36.0-46.0); Hemoglobin 13.6 g/dL (12.2-16.2); Mean Corpuscular Hemoglobin 30.7 pg (28.0-32.0); Monocytes # (auto) 1.3 10 ^3/uL (0-1.3); Neutrophils # (auto) 18.7 10 ^3/uL (1.6-8.6); Red Blood Cells 4.43 10^6/uL (4.0-5.20); Red Cell Distribution Width 13.6 % (11.8-14.3)
[2023-09-26] MEDS: IODIXANOL 320MG/ML 100ML BTL IV ONE (07:13)
[2023-09-26] MEDS: LIDOCAINE 2%HCL (LOCAL ANESTH.) INJ 20ML MDV ONE (07:13)
[2023-09-26] MEDS: IOHEXOL 350 MG/ML 100ML IJ ONE (07:13)
[2023-09-26] MEDS: HEPARIN IN NS 1000Units/500mL 1,500 ML ONE (07:14)
[2023-09-26] MEDS: fentaNYL CITRATE 100 MCG/2 ML VL ONE (07:38)
[2023-09-26] MEDS: SODIUM CHL 0.9% 50 ML ONE (08:07)
[2023-09-26] MEDS: MIDAZOLAM HCL 2MG/2ML 2ml VIAL (1mg/ml) ONE (08:07)
[2023-09-26] MEDS: ANGIOMAX 250 MG VIAL IV ONE (08:07)
[2023-09-26] MEDS ORDERED: PRED20TA2 PO (09:23)
[2023-09-26] MEDS ORDERED: DOXY-448 PO (09:26)
[2023-09-26] MEDS ORDERED: AUG875T PO (09:26)
[2023-09-26] MEDS: POTASSIUM CHL 20 Meq TABLET PO ONE (13:11)
[2023-09-26] MEDS ORDERED: PROM6.2520 PO (15:47)
[2023-09-26] MEDS ORDERED: NICO1DIS32 TD (15:54)
[2023-09-26] MEDS ORDERED: NICO14DI29 TD (15:59)
[2023-09-26] MEDS ORDERED: [UNRECOGNIZED DRUG - CODE] TD (16:01)
== END 2023-09-26 13:56 | disposition home or self-care (01) | DRG 871 ==
LOC: EDBD 12:18 → ER 12:18 → TELE 15:36 → ICU WEST 20:52 → DOU IN ICU 09-24 06:17
PROVIDERS: ADMIT Student in an Organized Health Care Education/Training Program; ATTEND Student in an Organized Health Care Education/Training Program
PROC: B211YZZ Fluoroscopy of Multiple Coronary Arteries using Other Contrast (ICD-10-PCS; principal; 2023-09-26)
PROC: B215YZZ Fluoroscopy of Left Heart using Other Contrast (ICD-10-PCS; 2023-09-26)
PROC: 4A023N8 Measurement of Cardiac Sampling and Pressure, Bilateral, Percutaneous Approach (ICD-10-PCS; 2023-09-26)
DX: A41.9 Sepsis, unspecified organism (principal); I50.21 Acute systolic (congestive) heart failure; J15.69 Pneumonia due to other Gram-negative bacteria; J96.21 Acute and chronic respiratory failure with hypoxia; J15.9 Unspecified bacterial pneumonia; J44.0 Chronic obstructive pulmonary disease with (acute) lower respiratory infection; E87.20 Acidosis, unspecified; I42.9 Cardiomyopathy, unspecified; J44.1 Chronic obstructive pulmonary disease with (acute) exacerbation; I11.0 Hypertensive heart disease with heart failure; I27.20 Pulmonary hypertension, unspecified; E11.9 Type 2 diabetes mellitus without complications; F17.210 Nicotine dependence, cigarettes, uncomplicated; I25.10 Atherosclerotic heart disease of native coronary artery without angina pectoris; Z90.710 Acquired absence of both cervix and uterus; Z79.2 Long term (current) use of antibiotics; Z79.899 Other long term (current) drug therapy; Z79.84 Long term (current) use of oral hypoglycemic drugs; Z99.81 Dependence on supplemental oxygen; Z82.49 Family history of ischemic heart disease and other diseases of the circulatory system; Z79.52 Long term (current) use of systemic steroids
CPT/HCPCS: 36415; 36600; 71045; 76937; 80048; 80053; 80202; 80307; 82805; 82962; 83605; 83880; 84484; 85007; 85025; 85027; 85379; 85610; 87040; 87077; 87081; 87086; 87186; 93005; 93460; 94640; 96361; 96365; 96367; 96375; 99152; 99291; G0378; J1815; J2250; J2543; Q9967